=== PATIENT | female | born 2000 | race Two or more races ===

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

== ENCOUNTER 2023-03-04 15:37 | Emergency (ER) | payer MEDICAID ==
[~2023-03-04] VITALS: Ht 177.8 cm; Wt 123.4 kg
[2023-03-04] MEDS ORDERED: MAG HYDROX/AL HYDROX/SIMETH 30 ML UDC PO ONE (16:30)
[2023-03-04] MEDS ORDERED: LIDOCAINE VISCOUS 2% UD 15 ML UDC MM ONE (16:30)
[2023-03-04] MEDS ORDERED: LIDOCAINE VISCOUS 2% UD 15 ML UDC ONE (16:33)
[2023-03-04] MEDS ORDERED: MAG HYDROX/AL HYDROX/SIMETH 30 ML UDC ONE (16:33)
[2023-03-04 18:05] VITALS: BP 122/70; TEMP 98.5; O2SAT 99
== END 2023-03-04 18:08 | disposition left against medical advice (07) ==
LOC: ER 15:52
DX: F45.8 Other somatoform disorders (principal); F17.200 Nicotine dependence, unspecified, uncomplicated; Z88.0 Allergy status to penicillin